=== PATIENT | female | born 1960 | race Caucasian/White ===

== ENCOUNTER 2019-03-25 11:00 | Inpatient (IN) ==
[~2019-03-25 11:00] MED LIST: *HR* Etomidate 20 MG/10 ML AMPUL IVP ONE; *HR* Propofol 200 MG/20 ML VIAL IVP ONE
[2019-03-25 13:04] LABS: ABG Base Excess -2 mEq/L (-2 to 3); ABG HCO3 25 mEq/L (21-27); ABG Oxygen Saturation 100 % (95-98); ABG PCO2 52 mmHg (35-45); ABG PO2 226 mmHg (85-104); ABG TCO2 27 mEq/L (20-26); Blood Gas VT 550 cc
[2019-03-25] MEDS ORDERED: Naloxone 0.4 MG/ML INJ IVP PRN (13:42)
[2019-03-25] MEDS ORDERED: Acetaminophen 325 MG TABLET PO PRN (13:42)
[2019-03-25] MEDS ORDERED: Ondansetron 4 MG/2 ML VIAL IVP PRN (13:42)
[2019-03-25] MEDS ORDERED: Dexmedetomidine HCl 400 MCG/100 ML MLS IVC ONE (13:59)
[2019-03-25 14:21] LABS: Segmented Neutrophils % 81.9 %
[2019-03-25 14:23] LABS: Basophils # 0.1 K/mcL (0.0-0.2); Basophils % 0.4 %; Hematocrit 45.9 % (35.3-44.9); Hemoglobin 14.4 g/dL (11.5-15.4); Immature Granulocytes % 0.7 % (0-4); Lymphocytes # 3.6 K/mcL (0.6-4.6); Lymphocytes % 14.6 %; Mean Corpuscular HGB Conc 31.4 g/dL (31.6-35.5); Mean Corpuscular Hemoglobin 27.6 pg (28.0-33.3); Mean Corpuscular Volume 88.1 fL (83.0-100.0); Mean Platelet Volume 9.2 fL (9.4-12.4); Monocytes # 0.6 K/mcL (0.0-1.3); Monocytes % 2.4 %; Neutrophils # 20.2 K/mcL (1.6-8.9); Platelet Count 350 K/mcL (140-400); Red Blood Count 5.21 M/mcL (3.82-4.97); Red Cell Distribution Width 12.1 % (11.5-14.5); White Blood Count 24.6 K/mcL (4.3-11.1)
[2019-03-25] MEDS: Ipratropium/Albuterol Neb 3 ML IH SCH ×2 (14:36→19:41)
[2019-03-25 14:39] LABS: BUN/Creatinine Ratio 32 (6-26); Blood Urea Nitrogen 16 mg/dL (6-20); Calcium 8.8 mg/dL (8.6-10.3); Carbon Dioxide 31 mEq/L (23-29); Chloride 108 mEq/L (98-107); Glucose 191 mg/dL (70-105); Magnesium 1.9 mg/dL (1.6-2.6); Osmolality,Calculated 304 (280-300); Potassium 3.9 mEq/L (3.5-5.1); Sodium 144 mEq/L (136-145); eGFR For African Americans > 60 (> 60); eGFR For Non-African Americans > 60 (> 60)
[2019-03-25] MEDS: Pantoprazole 40 MG VIAL IVP SCH (14:39)
[2019-03-25] MEDS: MethylPREDNISolone 40 MG/ML VIAL IVP SCH (14:39)
[2019-03-25] MEDS: Dexmedetomidine HCl 400 MCG/100 ML MLS IVC SCH (14:40)
[2019-03-25] MEDS: Budesonide/Formoterol 160/4.5 1 PUFF INH IH SCH ×2 (15:10→19:41)
[2019-03-25] MEDS: FentaNYL (PF) 1,000 MCG in 0.9 % Sodium Chloride 80 ML IVC SCH (15:11)
[2019-03-25] MEDS ORDERED: *HR* Dextrose 50 % in Water (Syg) 50 ML SYRINGE IVP PRN (15:16)
[2019-03-25] MEDS ORDERED: Dextrose Gel 15 GM/37.5 ML TUBE PO PRN ×2 (15:16)
[2019-03-25] MEDS ORDERED: D5% in Water 1,000 ML IVC PRN (15:16)
[2019-03-25 16:02] LABS: Platelet Estimate Normal (Normal)
[2019-03-25] MEDS ORDERED: Insulin LISPRO 300 UNITS/3 ML VIAL SQ SCH (16:30)
[2019-03-25] MEDS: *HR* Heparin 5,000 UNIT/ML VIAL SQ SCH ×2 (17:11→21:01)
[2019-03-25] MEDS: 0.9 % Sodium Chloride 1,000 ML IVC SCH (17:11)
[2019-03-25] MEDS: Piperacillin/Tazobactam 3.375 GM in 0.9 % Sodium Chloride Mini Bag 100 ML IVPB SCH ×2 (17:11→23:02)
[2019-03-25] MEDS ORDERED: Artificial Tears SOLN 15 ML BOTTLE BOTH EYES PRN (20:45)
[2019-03-25] MEDS: Chlorhexidine Rinse 15 ML MOUTHWASH MM SCH (21:01)
[2019-03-25] MEDS: Insulin DETEMIR 100 UNIT/ML X5UNITS SQ SCH (21:01)
[2019-03-25] MEDS: Insulin LISPRO 300 UNITS/3 ML VIAL SQ SCH ×2 (21:02→23:09)
[2019-03-25] MEDS: Artificial Tears SOLN 15 ML BOTTLE BOTH EYES SCH (23:03)
[2019-03-26] MEDS: Ipratropium/Albuterol Neb 3 ML IH SCH ×7 (00:11→23:57)
[2019-03-26] MEDS: FentaNYL (PF) 1,000 MCG in 0.9 % Sodium Chloride 80 ML IVC SCH ×4 (02:36→23:52)
[2019-03-26] MEDS: Artificial Tears SOLN 15 ML BOTTLE BOTH EYES SCH ×6 (03:15→23:31)
[2019-03-26 04:52] LABS: ABG Base Excess -2 mEq/L (-2 to 3); ABG HCO3 25 mEq/L (21-27); ABG Oxygen Saturation 97 % (95-98); ABG PCO2 51 mmHg (35-45); ABG PO2 97 mmHg (85-104); ABG TCO2 27 mEq/L (20-26); Blood Gas Modality PRVC; Blood Gas VT 450 cc
[2019-03-26] MEDS: *HR* Heparin 5,000 UNIT/ML VIAL SQ SCH ×3 (05:10→19:32)
[2019-03-26] MEDS: Insulin LISPRO 300 UNITS/3 ML VIAL SQ SCH ×4 (05:11→23:37)
[2019-03-26 05:15] LABS: Basophils % 0.2 %; Hematocrit 44.1 % (35.3-44.9); Hemoglobin 13.3 g/dL (11.5-15.4); Immature Granulocytes % 0.5 % (0-4); Lymphocytes # 2.6 K/mcL (0.6-4.6); Mean Corpuscular HGB Conc 30.2 g/dL (31.6-35.5); Mean Corpuscular Hemoglobin 28.1 pg (28.0-33.3); Monocytes # 0.8 K/mcL (0.0-1.3); Monocytes % 6.6 %; Neutrophils # 8.8 K/mcL (1.6-8.9); Platelet Count 192 K/mcL (140-400); Red Blood Count 4.74 M/mcL (3.82-4.97); Red Cell Distribution Width 12.3 % (11.5-14.5); Segmented Neutrophils % 71.7 %
[2019-03-26 05:18] LABS: White Blood Count 12.2 K/mcL (4.3-11.1)
[2019-03-26 05:58] LABS: BUN/Creatinine Ratio 30 (6-26); Blood Urea Nitrogen 16 mg/dL (6-20); Calcium 8.6 mg/dL (8.6-10.3); Carbon Dioxide 20 mEq/L (23-29); Chloride 110 mEq/L (98-107); Chol/HDL Ratio 2.9 (0-4.9); Cholesterol 149 mg/dL (< 200); Glucose 120 mg/dL (70-105); HDL Cholesterol 52 mg/dL (40-59); LDL Cholesterol,Calculated 44 mg/dL (0-99); Osmolality,Calculated 294 (280-300); Potassium 3.9 mEq/L (3.5-5.1); Sodium 141 mEq/L (136-145); Triglycerides 265 mg/dL (< 150); eGFR For African Americans > 60 (> 60); eGFR For Non-African Americans > 60 (> 60)
[2019-03-26] MEDS: 0.9 % Sodium Chloride 1,000 ML IVC SCH ×2 (06:02→19:15)
[2019-03-26] MEDS: Budesonide/Formoterol 160/4.5 1 PUFF INH IH SCH ×2 (07:42→19:48)
[2019-03-26] MEDS: Piperacillin/Tazobactam 3.375 GM in 0.9 % Sodium Chloride Mini Bag 100 ML IVPB SCH ×3 (08:03→23:32)
[2019-03-26] MEDS: Pantoprazole 40 MG VIAL IVP SCH (08:06)
[2019-03-26] MEDS: Chlorhexidine Rinse 15 ML MOUTHWASH MM SCH ×2 (08:06→19:31)
[2019-03-26] MEDS: MethylPREDNISolone 40 MG/ML VIAL IVP SCH ×2 (08:06→19:31)
[2019-03-26] MEDS: Dexmedetomidine HCl 400 MCG/100 ML MLS IVC SCH ×4 (08:07→22:46)
[2019-03-26 10:51] LABS: Estimated Average Glucose 174 mg/dl
[2019-03-26] MEDS ORDERED: *HR* LORazepam 1 MG TABLET PO PRN (15:29)
[2019-03-26] MEDS: Insulin DETEMIR 100 UNIT/ML X5UNITS SQ SCH (19:35)
[2019-03-26] MEDS ORDERED: traZODone 50 MG TABLET PO SCH (21:00)
[2019-03-27] MEDS: Artificial Tears SOLN 15 ML BOTTLE BOTH EYES SCH ×2 (03:27→09:22)
[2019-03-27] MEDS: Ipratropium/Albuterol Neb 3 ML IH SCH ×5 (03:47→19:58)
[2019-03-27] MEDS: Dexmedetomidine HCl 400 MCG/100 ML MLS IVC SCH (04:10)
[2019-03-27 04:28] LABS: Hematocrit 40.5 % (35.3-44.9); Hemoglobin 12.3 g/dL (11.5-15.4); Mean Corpuscular HGB Conc 30.4 g/dL (31.6-35.5); Mean Corpuscular Hemoglobin 28.2 pg (28.0-33.3); Mean Corpuscular Volume 92.9 fL (83.0-100.0); Mean Platelet Volume 9.4 fL (9.4-12.4); Platelet Count 223 K/mcL (140-400); Red Blood Count 4.36 M/mcL (3.82-4.97); Red Cell Distribution Width 12.3 % (11.5-14.5); White Blood Count 9.6 K/mcL (4.3-11.1)
[2019-03-27 04:56] LABS: BUN/Creatinine Ratio 44 (6-26); Blood Urea Nitrogen 20 mg/dL (6-20); Calcium 8.3 mg/dL (8.6-10.3); Carbon Dioxide 17 mEq/L (23-29); Chloride 112 mEq/L (98-107); Glucose 218 mg/dL (70-105); Osmolality,Calculated 297 (280-300); Potassium 4.2 mEq/L (3.5-5.1); Sodium 139 mEq/L (136-145); eGFR For African Americans > 60 (> 60); eGFR For Non-African Americans > 60 (> 60)
[2019-03-27] MEDS: Insulin LISPRO 300 UNITS/3 ML VIAL SQ SCH ×4 (06:03→21:51)
[2019-03-27] MEDS: *HR* Heparin 5,000 UNIT/ML VIAL SQ SCH ×3 (06:03→22:03)
[2019-03-27] MEDS: 0.9 % Sodium Chloride 1,000 ML IVC SCH (06:46)
[2019-03-27] MEDS: FentaNYL (PF) 1,000 MCG in 0.9 % Sodium Chloride 80 ML IVC SCH (06:47)
[2019-03-27] MEDS: Budesonide/Formoterol 160/4.5 1 PUFF INH IH SCH ×3 (07:56→19:58)
[2019-03-27] MEDS ORDERED: Vilazodone Hcl [Viibryd] 20 MG PO SCH (09:00)
[2019-03-27] MEDS: Pantoprazole 40 MG VIAL IVP SCH (09:34)
[2019-03-27] MEDS: Piperacillin/Tazobactam 3.375 GM in 0.9 % Sodium Chloride Mini Bag 100 ML IVPB SCH ×3 (09:34→23:52)
[2019-03-27] MEDS: MethylPREDNISolone 40 MG/ML VIAL IVP SCH ×2 (09:34→22:03)
[2019-03-27] MEDS: Chlorhexidine Rinse 15 ML MOUTHWASH MM SCH (09:35)
[2019-03-27] MEDS ORDERED: Naloxone 0.4 MG/ML INJ IVP PRN (09:59)
[2019-03-27] MEDS ORDERED: *HR* Dextrose 50 % in Water (Syg) 50 ML SYRINGE IVP PRN (09:59)
[2019-03-27] MEDS ORDERED: Ondansetron 4 MG/2 ML VIAL IVP PRN (09:59)
[2019-03-27] MEDS ORDERED: 0.9 % Sodium Chloride 1,000 ML IVC SCH (09:59)
[2019-03-27] MEDS ORDERED: Acetaminophen 325 MG TABLET PO PRN (09:59)
[2019-03-27] MEDS ORDERED: D5% in Water 1,000 ML IVC PRN (09:59)
[2019-03-27] MEDS ORDERED: Dextrose Gel 15 GM/37.5 ML TUBE PO PRN ×2 (09:59)
[2019-03-27] MEDS ORDERED: *HR* LORazepam 1 MG TABLET PO SCH (10:00)
[2019-03-27] MEDS ORDERED: Insulin LISPRO 300 UNITS/3 ML VIAL SQ SCH (12:00)
[2019-03-27] MEDS ORDERED: Aminoglycoside Consult 1 EACH MC ONE (14:01)
[2019-03-27] MEDS: Sucralfate 1 GM TABLET PO SCH ×4 (14:12→22:03)
[2019-03-27] MEDS: Lisinopril 20 MG TABLET PO SCH ×2 (14:12→15:24)
[2019-03-27] MEDS: *HR* LORazepam 1 MG TABLET PO SCH ×2 (15:24→22:03)
[2019-03-27] MEDS ORDERED: Piperacillin/Tazobactam 3.375 GM VIAL ONE (17:40)
[2019-03-27] MEDS ORDERED: Insulin DETEMIR 100 UNIT/ML X5UNITS SQ SCH (21:00)
[2019-03-27] MEDS: Insulin DETEMIR 100 UNIT/ML X5UNITS SQ SCH (21:51)
[2019-03-27] MEDS: traZODone 50 MG TABLET PO SCH (21:52)
[2019-03-28] MEDS: Ipratropium/Albuterol Neb 3 ML IH SCH ×7 (00:28→23:04)
[2019-03-28] MEDS: *HR* Heparin 5,000 UNIT/ML VIAL SQ SCH ×3 (05:23→20:40)
[2019-03-28] MEDS ORDERED: Pantoprazole 40 MG VIAL IVP SCH (07:30)
[2019-03-28] MEDS: Budesonide/Formoterol 160/4.5 1 PUFF INH IH SCH ×2 (07:40→20:23)
[2019-03-28] MEDS: Insulin LISPRO 300 UNITS/3 ML VIAL SQ SCH ×4 (08:18→21:08)
[2019-03-28] MEDS: *HR* LORazepam 1 MG TABLET PO SCH ×3 (08:19→20:40)
[2019-03-28] MEDS: Sucralfate 1 GM TABLET PO SCH ×4 (08:19→20:40)
[2019-03-28] MEDS: Piperacillin/Tazobactam 3.375 GM in 0.9 % Sodium Chloride Mini Bag 100 ML IVPB SCH ×2 (08:19→15:34)
[2019-03-28] MEDS: Lisinopril 20 MG TABLET PO SCH (08:19)
[2019-03-28] MEDS: MethylPREDNISolone 40 MG/ML VIAL IVP SCH ×2 (08:19→20:40)
[2019-03-28] MEDS: REXULTI 2MG PO SCH (08:20)
[2019-03-28] MEDS: VIIBRYD 20 MG PO SCH (08:20)
[2019-03-28] MEDS: Insulin DETEMIR 100 UNIT/ML X5UNITS SQ SCH (21:09)
[2019-03-28] MEDS: traZODone 50 MG TABLET PO SCH (21:09)
[2019-03-29] MEDS: Piperacillin/Tazobactam 3.375 GM in 0.9 % Sodium Chloride Mini Bag 100 ML IVPB SCH ×2 (00:11→07:40)
[2019-03-29] MEDS: Ipratropium/Albuterol Neb 3 ML IH SCH ×3 (03:51→11:42)
[2019-03-29] MEDS: *HR* Heparin 5,000 UNIT/ML VIAL SQ SCH ×2 (06:30→12:12)
[2019-03-29] MEDS: Sucralfate 1 GM TABLET PO SCH ×2 (07:39→12:12)
[2019-03-29] MEDS: Insulin LISPRO 300 UNITS/3 ML VIAL SQ SCH ×2 (07:39→12:12)
[2019-03-29] MEDS: Lisinopril 20 MG TABLET PO SCH (07:39)
[2019-03-29] MEDS: *HR* LORazepam 1 MG TABLET PO SCH (07:39)
[2019-03-29] MEDS: MethylPREDNISolone 40 MG/ML VIAL IVP SCH (07:39)
[2019-03-29] MEDS: VIIBRYD 20 MG PO SCH (07:40)
[2019-03-29] MEDS: REXULTI 2MG PO SCH (07:40)
[2019-03-29] MEDS: Budesonide/Formoterol 160/4.5 1 PUFF INH IH SCH (07:56)
[2019-03-29 11:53] VITALS: BP 136/84
== END 2019-03-29 14:02 | disposition home or self-care (01) | DRG 133 ==
LOC: ICNU 12:34 → 2ANU 03-27 22:41
PROVIDERS: ADMIT Internal Medicine Pulmonary Disease; ATTEND Internal Medicine Nephrology